=== PATIENT | female | born 1950 | race Hispanic/Latino ===

== ENCOUNTER → 2016-10-04 | Outpatient (CLI) | payer MEDICARE, OTHER | END | disposition home or self-care (01) | LOC: GMAB 10:56 | PROVIDERS: ATTEND Family Medicine | DX: I10 Essential (primary) hypertension (principal) ==

== ENCOUNTER → 2017-02-25 | Outpatient (CLI) | payer MEDICARE, OTHER ==
--- NOTE | 2017-02-25 12:35 | RAD ---
EXAM DESCRIPTION: Hip,Left 2 Views CLINICAL HISTORY: PAIN IN LEFT HIP COMPARISON: None FINDINGS: 2 views of the left hip. No acute fracture, dislocation or aggressive bone lesion is present. Bone mineralization appears normal. No erosions are present. No advanced osteoarthritis is present. Calcification is seen in the expected location of the abductor tendons. Symmetric bilateral mild sacroiliitis is seen likely degenerative. Severe facet arthritis of the lower lumbar spine. IMPRESSION: Negative for acute fracture or advanced osteoarthritis. Calcific tendinosis abductor tendons. Advanced facet arthritis of the lower lumbar spine can contribute to referred posterior hip pain. Electronically signed by: Coy Carias MD 02/25/2017 12:34 PM [facility]
== END | disposition home or self-care (01) ==
LOC: LAB.O 11:17
PROVIDERS: ATTEND Nurse Practitioner Family
DX: M47.896 Other spondylosis, lumbar region (principal); M25.552 Pain in left hip

== ENCOUNTER → 2017-03-20 | Outpatient (CLI) | payer MEDICARE, OTHER ==
--- NOTE | 2017-03-21 10:04 | RAD ---
EXAM DESCRIPTION: Knee,Right Complete CLINICAL HISTORY: 66 years, Female, PAIN COMPARISON: FINDINGS: Four views obtained without fracture or dislocation. Moderately advanced narrowing medially with spurring. Slight narrowing patellofemoral joint space was superior spurring. Chondrocalcinosis probably pseudogout. IMPRESSION: Moderate degenerative changes typically medially and patellofemoral joint space. Findings suggesting pseudogout. No fracture or dislocation. Electronically signed by: Chao Elizabeth MD 03/21/2017 10:[address] [facility]
--- NOTE | 2017-03-21 10:22 | RAD ---
EXAM DESCRIPTION: Pelvis CLINICAL HISTORY: 66 years, Female, PAIN COMPARISON: FINDINGS: Single frontal view the pelvis shows intact pelvic ring. Mild degenerative narrowing of both hips, slightly more in the right. Mild sacroiliac degenerative change, also more on the right. Mild degenerative changes lower lumbar spine. IMPRESSION: No fracture or dislocation. Mild degenerative changes noted. Electronically signed by: Chao Elizabeth MD 03/21/2017 10:21 AM [facility]
--- NOTE | 2017-03-21 10:23 | RAD ---
EXAM DESCRIPTION: Knee, left Complete CLINICAL HISTORY: 66 years, Female, PAIN COMPARISON: FINDINGS: No fracture or dislocation. Moderately advanced narrowing medially similar to the right side. Mild patellofemoral joint space narrowing. There may be faint chondrocalcinosis. IMPRESSION: No fracture or dislocation. Moderately advanced degenerative narrowing medially and patellofemoral joint space, fairly similar to the right side. Probable mild chondrocalcinosis Electronically signed by: Chao Elizabeth MD 03/21/2017 10:22 AM [facility]
== END ==
LOC: RAD 08:12
PROVIDERS: ATTEND Orthopaedic Surgery
DX: M25.562 Pain in left knee (principal); M25.552 Pain in left hip; M25.561 Pain in right knee; M25.551 Pain in right hip; M12.862 Other specific arthropathies, not elsewhere classified, left knee; M12.861 Other specific arthropathies, not elsewhere classified, right knee

== ENCOUNTER → 2017-04-11 | Outpatient (CLI) | payer MEDICARE, OTHER | END | disposition home or self-care (01) | LOC: RESP 10:21 | PROVIDERS: ATTEND Orthopaedic Surgery | DX: Z01.818 Encounter for other preprocedural examination (principal) ==

== ENCOUNTER 2017-04-30 05:46 | Inpatient (IN) | payer MEDICARE, OTHER ==
--- NOTE | 2017-04-29 11:30 | HP ---
CHIEF COMPLAINT: Left knee pain. HISTORY OF PRESENT ILLNESS: Ms. Barreto is a 66-year-old female with a history of pain in the left knee. She has attempted conservative measures, however, has failed to gain relief. The pain causes her enough difficulty on a daily basis that she wishes to pursue operative intervention. After discussing the risks, benefits and alternatives to that, the patient has given informed consent. PAST SURGICAL HISTORY: 1. Knee arthroscopy. MEDICATIONS: 1. Hydrocodone. 2. Gabapentin. 3. Valsartan. 4. Celecoxib. 5. Duloxetine. ALLERGIES: SULFA. CODE STATUS: Full code. IMMUNIZATIONS: Up to date. SOCIAL HISTORY: The patient does not drink, smoke or use any illicit drugs. FAMILY HISTORY: None pertinent to today's complaint. REVIEW OF SYSTEMS: Negative except as indicated in the History of Present Illness. PHYSICAL EXAMINATION: VITAL SIGNS: Blood pressure 158/90. Pulse 60. Height 5'1". Weight 164. MENTAL STATUS: The patient is awake, alert, and is able to give a good history and participate in the physical. The patient is oriented to person, place and time. SKIN: Normal tone and turgor. HEENT: Normocephalic, atraumatic. Pupils equal, round and reactive. Mucosal membranes are moist. NECK: Normal range of motion. No thyromegaly, no lymphadenopathy. CHEST: Normal respiratory excursion. CARDIAC: Regular rate and rhythm. No murmurs, rubs or gallops. MUSCULOSKELETAL: Bilateral upper extremities show full active range of motion. She has no significant pain with range of motion. Strength is 5/5. They are warm and well perfused. She has no crepitus or deformity. The right lower extremity shows full range of motion of the hip. She has full extension and 120 degrees of flexion in the knee. It is warm and well perfused. She is very tender to palpation diffusely, but most prominently the medial aspect. She has no varus/valgus or anterior/posterior laxity. The left side shows similar findings with crepitus and pain through range of motion. She has no varus/ valgus or anterior/posterior laxity. Sensation is intact. Strength is 5/5. IMAGING: X-rays show advanced arthritis. ASSESSMENT: 1. Arthritis of the knee. PLAN: The plan at this point is for total knee arthroplasty. We have discussed the risks, benefits, and alternatives to that and the patient has given informed consent. #[id number] [facility]
[~2017-04-30 05:46] MED LIST: LACTATED RINGERS 1,000 ML ONE; SODIUM CHL 0.9% 100ML MINI-BAG 100 ML IVPB ONE; SODIUM CHLORIDE 0.9% 100ML 100 ML IVPB ONE; SODIUM CHLORIDE 0.9% 250ML 250 ML ONE; TRANEXAMIC ACID 1,000 MG/10 ML VIAL ONE; VANCOMYCIN HCL INJ 1,000 MG VIAL IVPB ONE; ceFAZolin SODIUM 1 GM VIAL ONE
[2017-04-30] MEDS ORDERED: ceFAZolin SODIUM 1 GM VIAL ONE (06:16)
[2017-04-30] MEDS ORDERED: fentaNYL CITRATE INJ 50 MCG/ML AMP ONE (06:18)
[2017-04-30] MEDS ORDERED: MORPHINE SULFATE *EPIDURAL* 0.5 MG/ML VIAL ONE (06:18)
[2017-04-30] MEDS ORDERED: LACTATED RINGERS 1,000 ML ONE (06:19)
[2017-04-30] MEDS ORDERED: MIDAZOLAM INJ 2 MG/2 ML VIAL ONE (06:19)
[2017-04-30] MEDS ORDERED: LIDOCAINE 2 % GEL 5 ML TUBE TOP ONE (06:19)
[2017-04-30] MEDS: ceFAZolin SODIUM 1 GM VIAL ONE ×2 (07:47→08:50)
[2017-04-30] MEDS: BUPIVACAINE 0.25% W/EPI 50 ML VIAL INJ ONE ×2 (07:48→08:56)
[2017-04-30] MEDS: VANCOMYCIN HCL INJ 1,000 MG VIAL IVPB ONE ×2 (07:48→08:50)
[2017-04-30] MEDS ORDERED: DEX 5% W/NACL 0.45% 1000ML 1,000 ML IVS PRN (09:06)
[2017-04-30] MEDS ORDERED: ALUMINUM & MAGNESIUM HYDROXIDE 30 ML UD PO PRN (09:06)
[2017-04-30] MEDS ORDERED: SODIUM CHLORIDE 0.9% (FLUSH) 10 ML SYG IV PRN (09:06)
[2017-04-30] MEDS ORDERED: PROMETHAZINE HCL INJ 25 MG in SODIUM CHLORIDE 0.9% 50ML 50 ML IVPB PRN (09:06)
[2017-04-30] MEDS ORDERED: ACETAMINOPHEN 500 MG TAB PO PRN (09:06)
[2017-04-30] MEDS ORDERED: TRANEXAMIC ACID INJ 1,000 MG in SODIUM CHLORIDE 0.9% 100ML 100 ML IVPB ONE (09:06)
[2017-04-30] MEDS ORDERED: PROMETHAZINE HCL INJ 12.5 MG in SODIUM CHLORIDE 0.9% 50ML 50 ML IVPB PRN (09:06)
[2017-04-30] MEDS ORDERED: MORPHINE SULFATE INJ 10 MG/ML VIAL IM PRN (09:06)
[2017-04-30] MEDS ORDERED: MAGNESIUM HYDROXIDE 30 ML UD PO PRN (09:06)
[2017-04-30] MEDS ORDERED: ONDANSETRON INJ 4 MG/2 ML VIAL IV PRN (09:06)
[2017-04-30] MEDS ORDERED: MORPHINE SULFATE INJ 10 MG/ML VIAL IV PRN (09:06)
[2017-04-30] MEDS ORDERED: BENZOCAINE-MENTH LOZ (CEPACOL) 1 EA LOZ MT PRN (09:06)
[2017-04-30] MEDS ORDERED: BISACODYL SUPPOSITORY 10 MG PR PRN (09:06)
[2017-04-30] MEDS ORDERED: ZOLPIDEM TARTRATE 5 MG TAB PO PRN (09:06)
[2017-04-30] MEDS ORDERED: NALOXONE HCL INJ 0.4 MG/ML VIAL IV PRN (09:06)
[2017-04-30] MEDS ORDERED: ACETAMINOPHEN 325 MG TAB PO PRN (09:06)
[2017-04-30] MEDS ORDERED: TEMAZEPAM 15 MG CAP PO PRN (09:06)
[2017-04-30] MEDS ORDERED: MORPHINE PCA 1 MG/ML 100 ML BAG IVPB ONE (09:07)
[2017-04-30] MEDS ORDERED: MORPHINE PCA 1 MG/ML 100ML 1 BAG in PREMIX BAG 1 BAG IVPB SCH (09:30)
[2017-04-30] MEDS ORDERED: METOCLOPRAMIDE HCL INJ 10 MG/2 ML VIAL ONE (10:27)
[2017-04-30] MEDS ORDERED: METOCLOPRAMIDE HCL INJ 10 MG/2 ML VIAL IV ONE ×2 (10:30→12:00)
[2017-04-30] MEDS ORDERED: ONDANSETRON INJ 4 MG/2 ML VIAL IV ONE (10:30)
[2017-04-30] MEDS ORDERED: PROPOFOL 200 MG/20 ML VIAL IV ONE (12:00)
[2017-04-30] MEDS ORDERED: DEXAMETHASONE INJ 10 MG/ML VIAL IV ONE (12:00)
[2017-04-30] MEDS: IV SET AND CAP CHANGE INJ INJ SCH (14:00)
[2017-04-30] MEDS ORDERED: DEXTROSE 50% 25 GM/50 ML SYG IV PRN (14:12)
[2017-04-30] MEDS ORDERED: GLUCAGON INJ 1 MG VIAL SUBCU PRN (14:12)
--- NOTE | 2017-04-30 14:17 | PCM.CORE ---
Physician DVT/VTE - Nurse DVT Assessment & Total Each Risk Factor Represents 2 Points: Age 60-74, Major Surgery >45 minutes DVT Assessment Score: 4 - 3-4 High Risk Treatments: Early Ambulation *, Sequential Compression Device - 5 or more Very High Risk Treatments: Early Ambulation *, Sequential Compression Device Pharmacological: Enoxaparin 30mg SQ BID
[2017-04-30] MEDS ORDERED: SODIUM CHLORIDE 0.9% 1000ML 1,000 ML ONE (16:14)
[2017-04-30] MEDS ORDERED: ceFAZolin SODIUM 2 GRAMS PREMI 50 ML IVPB ONE ×2 (16:15→20:34)
[2017-04-30] MEDS: SODIUM CHLORIDE 0.9% 1000ML 1,000 ML IVS PRN (16:22)
[2017-04-30] MEDS: ceFAZolin SODIUM 2 GRAMS PREMI 2 GM in PREMIX BAG 1 BAG IVPB SCH (16:23)
[2017-04-30] MEDS: GABAPENTIN 300 MG CAP PO SCH ×2 (16:23→20:38)
[2017-04-30] MEDS: INSULIN LISPRO 100 UNITS/ML PEN SUBCU SCH ×2 (16:36→21:04)
[2017-04-30] MEDS ORDERED: INSULIN LISPRO 100 UNITS/ML PEN SUBCU SCH (18:00)
[2017-04-30] MEDS ORDERED: SODIUM CHLORIDE 0.9% 250ML 250 ML ONE ×2 (18:06→20:32)
[2017-04-30] MEDS ORDERED: VANCOMYCIN HCL INJ 1,000 MG VIAL IVPB ONE ×2 (18:07→20:34)
[2017-04-30] MEDS: VANCOMYCIN HCL INJ 1,000 MG in SODIUM CHLORIDE 0.9% 250ML 250 ML IVPB SCH (18:09)
[2017-04-30] MEDS: DULoxetine HCL 30 MG CAP PO SCH (20:37)
[2017-04-30] MEDS: VALSARTAN 80 MG TAB PO SCH (20:37)
[2017-04-30] MEDS: CYCLOBENZAPRINE HCL 10 MG TAB PO PRN (20:37)
[2017-04-30] MEDS: DOCUSATE CALCIUM 240 MG CAP PO SCH (20:38)
--- NOTE | 2017-04-30 21:23 | CONS ---
DATE OF CONSULTATION: 04/30/17 SUPERVISING PHYSICIAN: El Marsh M.D. REASON FOR CONSULTATION: Total left knee arthroplasty. HISTORY OF PRESENT ILLNESS: Ms. Barreto is a 66 year-old female patient that has a longstanding history of osteoarthritis of the left knee. She has tried multiple attempts at conservative measure treatments as an outpatient but has failed to get any significant relief. The pain has worsened to the point where she is unable to fully function daily in her average daily activities, thus she requested elective operative intervention. She was scheduled today for elective left knee total arthroplasty and had no complications intraoperative or postoperative, and was followed in the immediate postoperative period. She was seen in stable condition. PAST MEDICAL HISTORY: 1. Hypertension. 2. Chronic low back pain. 3. Type 2 diabetes on diet only. 4. Headaches. 5. Seasonal allergies. PAST SURGICAL HISTORY: 1. section. 2. Hysterectomy. 3. Anterior cervical fusion. 4. Laparoscopic surgery of the shoulder. 5. Knee arthroscopy. HOME MEDICATIONS: 1. Gabapentin 600 mg t.i.d. 2. Cymbalta 60 mg at bedtime. 3. Celebrex 200 mg at bedtime. 4. Diovan 320 mg at bedtime. 5. Lorcet 10/325 one tablet every 6 hours as needed. ALLERGIES: SULFA ANTIBIOTICS. FAMILY HISTORY: Father from myocardial infarction. Mother had cancer. SOCIAL HISTORY: The patient currently works at [employer]. She is . Lives in [place]. She has never drank nor has she ever smoked tobacco. REVIEW OF SYSTEMS: Negative except as noted in History of Present Illness. PHYSICAL EXAMINATION: VITAL SIGNS: Temperature 97.4, pulse 68, blood pressure 129/82, respirations 16 , satting 94% on room air. Admission weight is 74.3 kg. GENERAL: The patient is currently resting, utilizing her CPM. She appears comfortable in no acute distress. Reports she has good pain control She is alert. HEENT: Tympanic membranes are clear bilaterally. Oropharynx is pink and moist without any lesions. NECK: Supple, non-tender with full range of motion. No jugular venous distention. CHEST: Clear to auscultation bilaterally without any rhonchi, wheezing or rales. HEART: Regular rate and rhythm without appreciable murmurs, gallops, or rubs. ABDOMEN: Soft, non-tender with positive bowel sounds. EXTREMITIES: Left knee has a bulky surgical dressing in place. Pulses distally are strong. Capillary refill is brisk. NEUROLOGIC: She is alert and oriented times three. LABORATORY: H&H postoperative is pending. Blood sugar is 125. RADIOLOGY: No additional radiographic studies are available. ASSESSMENT: 1. Postoperative day zero for elective left total knee arthroplasty secondary to chronic pain failing to respond to outpatient treatment therapy with surgery being performed by Dr. Evaristo Osman. 2. Hypertension. 3. Type 2 diabetes on diet only. 4. Seasonal allergies. 5. Chronic lower back pain. 6. History of headaches. PLAN: The patient will be followed as she proceeds through her physical therapy efforts. Will defer orthopedic care and plan to Dr. Osman. Will continue to monitor her blood pressure and blood sugars. She will be on sliding scale as per protocol. She will be on DVT prophylaxis as per protocol for orthopedic surgery. Will anticipate length of stay to be 2 to 3 days. Discharge planning is in place. She is unsure as to what she is going to do for physical therapy at discharge. Until discharge, will continue to monitor and treat appropriately. #[id number] [facility]
[2017-04-30] MEDS: ENOXAPARIN SODIUM 30 MG/0.3 ML SYG SUBCU SCH (22:04)
[2017-05-01] MEDS: ceFAZolin SODIUM 2 GRAMS PREMI 2 GM in PREMIX BAG 1 BAG IVPB SCH ×2 (00:18→08:51)
[2017-05-01] MEDS: VANCOMYCIN HCL INJ 1,000 MG in SODIUM CHLORIDE 0.9% 250ML 250 ML IVPB SCH (06:18)
[2017-05-01] MEDS ORDERED: ceFAZolin SODIUM 2 GRAMS PREMI 50 ML IVPB ONE (07:12)
[2017-05-01] MEDS: INSULIN LISPRO 100 UNITS/ML PEN SUBCU SCH ×4 (07:31→21:00)
--- NOTE | 2017-05-01 09:12 | RAD ---
KNEE X-RAY TWO-VIEW INDICATION: Arthroplasty COMPARISON: Knee x-ray 03/20/2017 TECHNIQUE: AP and lateral radiographs of the knee labeled left were obtained intraoperatively. FINDINGS/IMPRESSION: Status post left knee arthroplasty in anatomic alignment. No immediate hardware complication. Expected post surgical changes. Electronically signed by: Nean Andersen MD 05/01/2017 9:11 AM [employer] Workstation: [id number]
[2017-05-01] MEDS: GABAPENTIN 300 MG CAP PO SCH ×3 (09:27→20:50)
[2017-05-01] MEDS: ENOXAPARIN SODIUM 30 MG/0.3 ML SYG SUBCU SCH ×2 (09:27→22:26)
[2017-05-01] MEDS: MAGNESIUM OXIDE 400 MG TAB PO SCH (09:28)
--- NOTE | 2017-05-01 11:17 | PN ---
DATE: 05/01/17 SUBJECTIVE: She is doing well and says she is not having any pain at this time. OBJECTIVE: Afebrile. Vital signs stable. Dressing is clean, dry and intact. ASSESSMENT: Status post total knee arthroplasty. PLAN: The plan at this point is to begin weight-bearing as tolerated. [facility][id number] [facility]
--- NOTE | 2017-05-01 11:18 | PN ---
DATE: 04/30/17 POSTOPERATIVE SUBJECTIVE: She is doing well and has excellent pain control. OBJECTIVE: Afebrile. Vital signs stable. Dressing is clean, dry and intact. ASSESSMENT: Status post. PLAN: The plan at this point is to begin weight-bearing as tolerated on postoperative day 1. [facility][id number] [facility]
--- NOTE | 2017-05-01 11:42 | OP ---
DATE OF PROCEDURE: 04/30/17 PREOPERATIVE DIAGNOSIS: 1. Osteoarthritis of the knee. POSTOPERATIVE DIAGNOSIS: 1. Osteoarthritis of the knee. PROCEDURE: 1. Total knee arthroplasty. SURGEON: Evaristo Osman MD. TOPPER PACKER: Tawanda Mcdonald CST, SA-C. ANESTHESIA: General. COMPLICATIONS: None. FINDINGS: Advanced arthritis of the knee. INDICATION: Ms. Barreto has a history of knee pain that has been refractory to conservative measures. Because of the ongoing pain, she has requested operative intervention. After discussing the risks, benefits and alternatives to operative intervention, the patient has given informed consent for total knee arthroplasty. PROCEDURE: The patient was brought to the Operating Room and placed in supine position. General anesthesia was induced and the patient's leg was sterilely prepped and draped. Following prepping and draping, the distal femur was exposed and using an intramedullary guide, the distal femoral cut was made. The appropriate sized cutting block was measured, pinned into place, and the anterior, posterior, and chamfer cuts were made. The ACL was transected and the tibia was subluxed. Both the medial and lateral menisci were removed. An intramedullary guide was used to make the proximal tibial cut. The appropriate sized base plate was placed and a trial polyethylene was placed. The trial femur was placed, the knee was reduced, and the knee was taken through a range of motion. The knee was stable in anterior, posterior, varus and valgus stress. The patella tracked anatomically without evidence of subluxation or dislocation. After trialing, the trial components were removed and the bony surfaces were thoroughly irrigated with saline. Following irrigation, the surfaces were dried and the final components were cemented into place. The excess cement was removed and the remaining cement was allowed to cure. The knee was again taken through a range of motion to confirm stability. The wound was then irrigated with saline and closure was performed using PDS to approximate the arthrotomy followed by closure of the subcutaneous tissues with a combination of running and interrupted Monocryl sutures. Sterile dressing was placed. The patient was awoken from anesthesia and taken to Recovery. POSTOPERATIVE INSTRUCTIONS: The patient will be weight-bearing as tolerated on postoperative day 1. COMPONENTS: [employer] ([employer]) Triathlon knee, size 5 femur, size 4 tibia, 9 mm insert. #[id number] [facility]
[2017-05-01] MEDS: SODIUM CHLORIDE 0.9% 1000ML 1,000 ML IVS PRN (16:47)
--- NOTE | 2017-05-01 19:37 | PN ---
DATE: 05/01/17 SUPERVISING PHYSICIAN: El Marsh M.D. SUBJECTIVE: The patient is lying in bed asleep. She awakens easily. She denies chest pain, nausea, vomiting, diarrhea or constipation. She admits that her knee does hurt but nothing more than she expects. OBJECTIVE: VITAL SIGNS: T max 24 hours is 99.1, pulse rate 62, blood pressure 108/71, respiratory rate 16, O2 sat is 90% on room air. GENERAL: This is a 66 year-old female patient lying on her hospital bed. She is in no acute distress. RESPIRATORY: Essentially clear to auscultation bilaterally. CARDIAC : Regular rate and rhythm. EXTREMITIES: Her right knee has a dressing with Giancarlo bandage on it that is dry and intact. Her bilateral pedal pulses are palpable at +2. NEUROLOGIC: She is awake, alert and oriented times three. LABORATORY: Hemoglobin is 10.6, hematocrit 31.9. Blood sugars have run between 93 and 164. All other labs and films have been reviewed via the EMR. ASSESSMENT: 1. Postoperative day #1 for elective left total knee arthroplasty secondary to chronic pain failing to respond to outpatient treatment therapy with surgery being performed by Dr. Evaristo Osman, orthopedic surgeon. 2. Hypertension. 3. Type 2 diabetes on diet only. 4. Seasonal allergies. 5. Chronic lower back pain. 6. History of migraines. PLAN: We will continue present supportive care. Orthopedic issues will be per Dr. Evaristo Osman, orthopedic surgeon. She will continue her strengthening and conditioning with Physical Therapy. Discharge plan is that she will do outpatient physical therapy at the [facility]. I have encouraged good pulmonary hygiene and frequent use of her IS. Otherwise we will continue to monitor the patient closely and follow as needed. Dr. Marsh is the collaborating physician available for consultation. #[id number] [facility]
[2017-05-01] MEDS: traMADol HCL 50 MG TAB PO PRN (19:55)
[2017-05-01] MEDS: DOCUSATE CALCIUM 240 MG CAP PO SCH (20:50)
[2017-05-01] MEDS: DULoxetine HCL 30 MG CAP PO SCH (20:50)
[2017-05-01] MEDS: VALSARTAN 80 MG TAB PO SCH (20:50)
[2017-05-02] MEDS: INSULIN LISPRO 100 UNITS/ML PEN SUBCU SCH ×4 (07:20→20:57)
[2017-05-02] MEDS: MAGNESIUM OXIDE 400 MG TAB PO SCH (09:13)
[2017-05-02] MEDS: GABAPENTIN 300 MG CAP PO SCH ×3 (09:13→20:50)
[2017-05-02] MEDS: CYCLOBENZAPRINE HCL 10 MG TAB PO PRN ×2 (09:14→17:48)
[2017-05-02] MEDS: SODIUM CHLORIDE 0.9% (FLUSH) 10 ML SYG IV SCH ×2 (09:14→21:05)
[2017-05-02] MEDS: traMADol HCL 50 MG TAB PO PRN ×2 (09:14→17:47)
[2017-05-02] MEDS: ENOXAPARIN SODIUM 30 MG/0.3 ML SYG SUBCU SCH ×2 (09:14→22:05)
--- NOTE | 2017-05-02 18:08 | PN ---
DATE: 05/02/17 SUPERVISING PHYSICIAN: El Marsh M.D. SUBJECTIVE: The patient is sitting up in her bed in her room. She has no complaints of shortness of breath, nausea, vomiting, diarrhea or chest pain. She feels like she went through her physical therapy today well and has no complaints. OBJECTIVE: VITAL SIGNS: She is afebrile, heart rate 77, blood pressure 157/79, respiratory rate 18, O2 sat 93% on room air. RESPIRATORY: Essentially clear to auscultation bilaterally. CARDIAC: Regular rate and rhythm. EXTREMITIES: Incision to left knee is without signs or symptoms of complications or infection with minimal swelling. Bilateral pedal pulses are palpable at +2. NEUROLOGIC: She is awake, alert and oriented times three. LABORATORY: There are no labs or films to report today. ASSESSMENT: 1. Postoperative day #2 for elective left total knee arthroplasty secondary to chronic pain failing to respond to outpatient treatment therapy with surgery being performed by Dr. Evaristo Osman, orthopedic surgeon. 2. Hypertension. 3. Type 2 diabetes, diet controlled only. 4. Seasonal allergies. 5. Chronic lower back pain. 6. History of migraines. PLAN: We will continue present supportive care. Her orthopedic issues will be per Dr. Evaristo Osman, orthopedic surgeon. She will continue her strengthening and conditioning per Physical Therapy. I have continued to encourage good pulmonary hygiene. Plan for discharge will be tomorrow or Saturday. She will [facility]. We will continue to monitor the patient closely and follow as needed. Dr. Marsh is the collaborating physician available for consultation. #[id number] [facility]
[2017-05-02] MEDS: VALSARTAN 80 MG TAB PO SCH (20:50)
[2017-05-02] MEDS: DOCUSATE CALCIUM 240 MG CAP PO SCH (20:51)
[2017-05-02] MEDS: DULoxetine HCL 30 MG CAP PO SCH (20:51)
[2017-05-03] MEDS: traMADol HCL 50 MG TAB PO PRN ×2 (03:32→20:19)
[2017-05-03] MEDS: HYDROcodone 5MG/APAP 325MG 1 EA TAB PO PRN ×2 (06:41→14:36)
[2017-05-03] MEDS: INSULIN LISPRO 100 UNITS/ML PEN SUBCU SCH ×4 (07:28→23:46)
[2017-05-03] MEDS: MAGNESIUM OXIDE 400 MG TAB PO SCH (08:06)
[2017-05-03] MEDS: SODIUM CHLORIDE 0.9% (FLUSH) 10 ML SYG IV SCH ×2 (08:06→20:20)
[2017-05-03] MEDS: GABAPENTIN 300 MG CAP PO SCH ×3 (08:06→20:20)
[2017-05-03] MEDS: IV SET AND CAP CHANGE INJ INJ SCH (09:11)
[2017-05-03] MEDS: ENOXAPARIN SODIUM 30 MG/0.3 ML SYG SUBCU SCH ×2 (09:12→22:30)
--- NOTE | 2017-05-03 09:21 | PN ---
DATE: 05/02/17 SUBJECTIVE: Mr. Barreto is doing really well and she has great pain control right now. She has bee up and ambulating on her walker with assistance. OBJECTIVE: Afebrile. Vital signs stable. Wound is clean, dry and without signs or symptoms of infection. ASSESSMENT: Status post total knee arthroplasty. PLAN: The plan at this point is for her to continue with weight-bearing as tolerated. We will discharge her when all physical therapy goals are met. #[id number] [facility]
--- NOTE | 2017-05-03 09:25 | PN ---
DATE: 05/03/17 SUBJECTIVE: Ms. Barreto is doing well and she walked quite a ways yesterday. OBJECTIVE: Afebrile. Vital signs stable. Wound is clean. There are no signs or symptoms of infection. ASSESSMENT: Status post total knee arthroplasty. PLAN: At this point, we are going to have her continue weight-bearing as tolerated and increase her CPM as tolerated. [id number] [facility]
--- NOTE | 2017-05-03 15:14 | PN ---
DATE: 05/03/17 SUBJECTIVE: The patient is lying in the bed. She is actively participating with her physical therapy personnel. She is in no significant pain. No shortness of breath. No nausea and vomiting. She has not had a bowel movement in recent days but does not wish to have anything for it at this time. Physical Therapy states that she has shown some steady improvement now being the third postoperative day. OBJECTIVE: Afebrile, pulse 85, blood pressure 110/69, pulse oximetry 92% on room air. The patient is awake and alert and cooperative. Heart and lungs normal. Abdomen is soft, slightly obese. There is no drainage into the dressings of the left knee. Fairly good range of motion is noted. The patient is cooperative with her ongoing rehabilitation. ASSESSMENT: 1. Postoperative day #3 total left knee arthroplasty having failed outpatient therapy and requiring surgical intervention to assist with symptom control with surgery performed by Dr. Evaristo Osman, orthopedic surgeon. 2. Chronic osteoarthritis failing to respond to outpatient therapy and requiring surgical intervention. 3. History of hypertension. 4. History of diabetes mellitus type 2 with diet control. 5. History of seasonal allergies. 6. Chronic low back pain. 7. History of migraines. PLAN: The patient will continue with rehabilitation. Reevaluate tomorrow by Physical Therapy, then a decision will be made for possible continued outpatient therapy tomorrow with [facility] with ongoing PT rehabilitation under orthopedic supervision. Encouraged to breathe deeply and actively contract and relax muscles of the lower extremities to assist with ongoing DVT prophylaxis. #[id number] [facility]
[2017-05-03] MEDS: VALSARTAN 80 MG TAB PO SCH (20:19)
[2017-05-03] MEDS: DULoxetine HCL 30 MG CAP PO SCH (20:19)
[2017-05-03] MEDS: DOCUSATE CALCIUM 240 MG CAP PO SCH (20:20)
[2017-05-03] MEDS ORDERED: BISACODYL SUPPOSITORY 10 MG PR ONE (21:00)
[2017-05-03] MEDS ORDERED: MAGNESIUM HYDROXIDE 30 ML UD PO ONE (21:00)
[2017-05-04] MEDS: HYDROcodone 5MG/APAP 325MG 1 EA TAB PO PRN (03:08)
[2017-05-04] MEDS: CYCLOBENZAPRINE HCL 10 MG TAB PO PRN (03:09)
[2017-05-04] MEDS: INSULIN LISPRO 100 UNITS/ML PEN SUBCU SCH (07:07)
[2017-05-04] MEDS: SODIUM CHLORIDE 0.9% (FLUSH) 10 ML SYG IV SCH (08:01)
[2017-05-04] MEDS: MAGNESIUM OXIDE 400 MG TAB PO SCH (08:01)
[2017-05-04] MEDS: GABAPENTIN 300 MG CAP PO SCH (08:01)
[2017-05-04] MEDS: ENOXAPARIN SODIUM 30 MG/0.3 ML SYG SUBCU SCH (09:02)
[2017-05-04 09:55] VITALS: BP 120/78; TEMP 97.8; O2SAT 98
--- NOTE | 2017-05-04 12:24 | DS ---
DISCHARGE DIAGNOSIS: 1. Postoperative day #4 total left knee arthroplasty having failed outpatient therapy and requiring surgical intervention to assist with symptom control with surgery performed by Dr. Evaristo Osman, orthopedic surgeon. 2. Chronic osteoarthritis failing outpatient therapy and requiring surgical intervention. 3. History of hypertension. 4. History of diabetes mellitus type 2 on diet control. 5. History of seasonal allergies. 6. Chronic low back pain. 7. History of migraines. HISTORY OF PRESENT ILLNESS: This 66 year-old female was admitted to the hospital on 04/30/17 for elective surgical replacement of her left knee. She had been having significant pain for a number of years and had failed to respond to various and multiple outpatient treatment procedures and options. She was taken to surgery and successfully went through surgery by Dr. Osman to replace the left knee for symptom control. In the immediate postoperative period, she was managed closely by the hospitalist service as well as continued rehabilitation by Physical Therapy under orthopedic surgical supervision. LABORATORY: The only laboratory provided was a hemoglobin postoperatively of 10.6 and chemistries showed blood sugar ranging from 93 up to 132, and was 98 at the time of her discharge. No cultures obtained. RADIOLOGY: X-ray was performed postoperatively and showed satisfactory placement of the prosthesis in the left knee. HOSPITAL COURSE: The patient was feeling much improved and had successfully achieved her physical therapy goal of rehabilitation to be able to safely return home and continue with outpatient management as of the day of discharge. She was ready for continued outpatient therapy and management at the time of the day of discharge. PLAN: The patient will be scheduled to see Dr. Osman at the scheduled appointment and to continue with physical therapy rehabilitation as of [facility] [place]. She is to stay active and breathe deeply to help with DVT prophylaxis. Continue with Xarelto for at least 8 more days with prescription called in to her pharmacy. She is to return if not improving. See home medication list. [facility][id number] [facility]
== END 2017-05-04 11:00 | disposition home or self-care (01) | DRG 470 ==
LOC: AMB 05:46 → MS 11:00
PROVIDERS: ADMIT Orthopaedic Surgery; ATTEND Emergency Medicine
PROC: 0SRD0J9 Replacement of Left Knee Joint with Synthetic Substitute, Cemented, Open Approach (ICD-10-PCS; principal; 2017-04-30 07:09)
DX: M17.12 Unilateral primary osteoarthritis, left knee (principal); I10 Essential (primary) hypertension; E11.9 Type 2 diabetes mellitus without complications; G89.29 Other chronic pain; M54.5 Low back pain; Z88.2 Allergy status to sulfonamides

== ENCOUNTER → 2018-02-17 | Outpatient (CLI) | payer MEDICARE, OTHER | LOC: GMAE 11:16 | PROVIDERS: ATTEND Family Medicine | DX: I10 Essential (primary) hypertension (principal) ==

== ENCOUNTER → 2018-06-17 | Outpatient (CLI) | payer MEDICARE, OTHER | LOC: GMAE 14:18 | PROVIDERS: ATTEND Family Medicine | DX: D51.3 Other dietary vitamin B12 deficiency anemia (principal); E83.42 Hypomagnesemia ==

== ENCOUNTER → 2019-04-14 | Outpatient (CLI) | payer MEDICARE, OTHER | LOC: GMAE 10:28 | PROVIDERS: ATTEND Family Medicine | DX: D51.8 Other vitamin B12 deficiency anemias (principal); I10 Essential (primary) hypertension; E78.2 Mixed hyperlipidemia ==

== ENCOUNTER 2019-05-19 10:41 | Emergency (ER) | payer MEDICARE, OTHER ==
[2019-05-19 11:04] VITALS: TEMP 97
[2019-05-19] MEDS ORDERED: cloNIDine HCL 0.1 MG TAB PO ONE (11:18)
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
[2019-05-19 15:03] VITALS: BP 121/73; O2SAT 96
== END 2019-05-19 14:59 | disposition home or self-care (01) ==
LOC: ER 10:41
DX: S00.03XA Contusion of scalp, initial encounter (principal); M25.511 Pain in right shoulder; M25.512 Pain in left shoulder; M54.2 Cervicalgia; I10 Essential (primary) hypertension; Z98.84 Bariatric surgery status; W01.198A Fall on same level from slipping, tripping and stumbling with subsequent striking against other object, initial encounter; Y92.480 Sidewalk as the place of occurrence of the external cause

== ENCOUNTER → 2019-11-02 | Outpatient (CLI) | payer MEDICARE, OTHER ==
--- NOTE | 2019-11-02 10:33 | RAD ---
EXAM DESCRIPTION: Knee,Left Complete CLINICAL HISTORY: 69 years Female, PAIN IN LEFT KNEE COMPARISON: None. Findings: Four view(s)/radiograph(s) Left total knee arthroplasty. Minimal perihardware lucency posteriorly surrounding the tibial stem component. No acute fracture or dislocation. No significant joint effusion. IMPRESSION: Left total knee arthroplasty with minimal perihardware lucency posteriorly along the tibial stem component which can be seen with loosening. Electronically signed by: Cong Grant MD 11/02/2019 10:32 AM CDT
--- NOTE | 2019-11-02 10:36 | RAD ---
EXAM DESCRIPTION: Pelvis CLINICAL HISTORY: PAIN IN LEFT HIP COMPARISON: December 19, 2016 IMPRESSION: Single AP supine view of the pelvis shows mild diffuse osteopenia the osseous structures without acute rupture, focal bone destruction, or joint dislocation. Mild joint space narrowing is seen in both hips with sclerotic changes to the superior acetabula compatible with mild osteoarthritic changes. Degenerative changes of the sacroiliac joints are seen left greater than right. Electronically signed by: Brando Kerr MD 11/02/2019 10:34 AM CDT
== END ==
LOC: RAD 08:05
PROVIDERS: ATTEND Orthopaedic Surgery
DX: M85.88 Other specified disorders of bone density and structure, other site (principal); M25.851 Other specified joint disorders, right hip; M25.852 Other specified joint disorders, left hip; M47.898 Other spondylosis, sacral and sacrococcygeal region; Z96.652 Presence of left artificial knee joint; R93.7 Abnormal findings on diagnostic imaging of other parts of musculoskeletal system

== ENCOUNTER 2020-01-11 05:12 | Day surgery (SDC) | payer MEDICARE, OTHER ==
[2020-01-11] MEDS ORDERED: MIDAZOLAM INJ 2 MG/2 ML VIAL ONE (07:10)
[2020-01-11] MEDS ORDERED: PROPARACAINE 0.5% OPHTH SOL 15 ML BTTL LEFT_EYE ONE (07:59)
[2020-01-11] MEDS ORDERED: DEXAMETHASONE 0.1% OPHTH SOL 1 DROP LEFT_EYE ONE ×2 (08:08→08:27)
[2020-01-11] MEDS ORDERED: MOXIFLOXACIN HCL (OPHTH) 1 DROP DROPS LEFT_EYE ONE ×2 (08:08→08:26)
[2020-01-11] MEDS ORDERED: LIDOCAINE 1% MPF 2 ML VIAL INJ ONE ×2 (08:08→08:13)
[2020-01-11] MEDS ORDERED: TOBRAMYCIN SULF 0.3 % OPHT SOL 1 DROP LEFT_EYE ONE ×2 (08:09→08:27)
[2020-01-11] MEDS ORDERED: BRIMONIDINE 0.2% OPHTH DROPS LEFT_EYE ONE ×2 (08:09→08:27)
== END 2020-01-11 09:02 | disposition home or self-care (01) ==
LOC: AMB 05:12
PROVIDERS: ATTEND Ophthalmology
DX: E11.36 Type 2 diabetes mellitus with diabetic cataract (principal); H25.12 Age-related nuclear cataract, left eye; I10 Essential (primary) hypertension; Z79.899 Other long term (current) drug therapy
CPT/HCPCS: 00142; 66984; J2250

== ENCOUNTER 2020-01-25 05:14 | Day surgery (SDC) | payer MEDICARE, OTHER ==
[2020-01-25] MEDS ORDERED: TROP1%/CYCLOPEN 1%/PHENYL 2.5% DROPS OPHTH ONE (05:15)
[2020-01-25] MEDS ORDERED: MIDAZOLAM INJ 2 MG/2 ML VIAL ONE (06:55)
[2020-01-25] MEDS ORDERED: PROPARACAINE 0.5% OPHTH SOL 15 ML BTTL RIGHT_EYE ONE (07:28)
[2020-01-25] MEDS ORDERED: LIDOCAINE 1% MPF 2 ML VIAL INJ ONE (07:37)
[2020-01-25] MEDS ORDERED: MOXIFLOXACIN HCL (OPHTH) 1 DROP DROPS RIGHT_EYE ONE ×2 (07:37→07:53)
[2020-01-25] MEDS ORDERED: DEXAMETHASONE 0.1% OPHTH SOL 1 DROP RIGHT_EYE ONE ×2 (07:38→07:53)
[2020-01-25] MEDS ORDERED: TOBRAMYCIN SULF 0.3 % OPHT SOL 1 DROP RIGHT_EYE ONE ×2 (07:38→07:53)
[2020-01-25] MEDS ORDERED: BRIMONIDINE 0.2% OPHTH DROPS RIGHT_EYE ONE ×2 (07:38→07:53)
== END 2020-01-25 08:29 | disposition home or self-care (01) ==
LOC: AMB 05:14
PROVIDERS: ATTEND Ophthalmology
DX: E11.36 Type 2 diabetes mellitus with diabetic cataract (principal); H25.11 Age-related nuclear cataract, right eye; I10 Essential (primary) hypertension; Z79.899 Other long term (current) drug therapy
CPT/HCPCS: 00142; 66984; J2250

== ENCOUNTER → 2020-02-16 | Outpatient (CLI) | payer MEDICARE, OTHER ==
--- NOTE | 2020-02-17 10:41 | MRI ---
EXAM DESCRIPTION: Lumbar Spine w/o Contrast : Magnetic Resonance Imaging. CLINICAL HISTORY: lumbar radiculopathy COMPARISON: Noncontrast MRI scan lumbar spine October 2015. TECHNIQUE: Multiplanar, multiple standard sequences, non contrast MRI, lumbar spine.. Technically difficult study due to patient motion most sequences. FINDINGS: L5-S1: The disc is well visualized on axial T2 series 501, image 3. Disc desiccation and disc space loss. Anterior and posterior bulging. 4 mm grade 1 anterolisthesis. Posterior disc bulge. Moderate hypertrophic changes in the facet joints and posterior flavum ligaments (canal elements). AP canal diameter 8 mm. Left foraminal stenosis and moderate to severe right foraminal narrowing. Deformity and spondylolysis left L5 pars interarticularis stable. Transitional S1 segment is lumbarized with rudimentary S1-S2 disc stable from the prior study. L4-L5: Disc desiccation and posterior disc space loss. Posterior disc bulge. Grade 1 anterolisthesis 3 mm. In greatest hypertrophic changes in the canal elements, especially the ligaments. AP canal diameter 4 mm. This has progressed since the prior study. Left foraminal stenosis and moderate right foraminal narrowing stable since the prior study. Abnormal signal in the left L4 pars representing spondylolysis. L3-L4: Disc desiccation with disc space maintained. No significant bulging. Mild hypertrophic changes in the canal elements. AP canal diameter 11 mm. Bilateral mild to moderate foraminal narrowing. No interval change. L2-L3: Disc desiccation and anterior and posterior broad-based bulging. Hypertrophic changes in the canal elements. AP canal diameter 9 mm. Disc bulging also in the bilateral foramina. Borderline left foraminal stenosis which is progressed since the prior study and moderate right foraminal narrowing. L1-L2: Disc desiccation and posterior disc space loss and broad-based bulge. This has progressed since the prior study. Minimal anterior bulging and endplate spurs. Hypertrophic changes in the canal elements. Canal is patent. Mild bilateral foraminal narrowing. Conus terminates at this level. T12-L1: Disc desiccation and anterior bulging and endplate spurs. Midline and right side moderate endplate reactive changes. Associated marrow edema. Disc spur complex encroaching on the right foramen with stenosis and probable compromise right T12 nerve. Significantly worsened since the prior study. Hypertrophic changes in the canal elements with minimal canal narrowing of the right of midline. T11 L2 levoscoliosis. Paravertebral soft tissues show muscle atrophy, right cortical cyst.. Distal cord normal signal and caliber. Otherwise normal marrow signal in the remaining vertebral bodies and the posterior elements. Vertebral bodies are not compressed at any level. IMPRESSION: 1. Multiple levels of disc desiccation and bulging, disc space loss, and hypertrophic changes in the posterior flavum ligaments and facet joints, spondylosis and spondylolisthesis, and canal and foraminal narrowing. 2. Spondylosis on the right at T12-L1 has significantly worsened since the prior study resulting in levoscoliosis, right foraminal stenosis, and likely compromise of the right T12 nerve. 3. Borderline left foraminal stenosis at L2-L3 has progressed since the prior study. Possible compromise left L2 nerve. 4. Please refer to FINDINGS for discussion results at other disc space levels. Electronically signed by: Tawanda Zamorano MD 02/17/2020 10:39 AM [facility]
== END ==
LOC: MRI 09:00
PROVIDERS: ATTEND General Practice
DX: M51.16 Intervertebral disc disorders with radiculopathy, lumbar region (principal); M47.26 Other spondylosis with radiculopathy, lumbar region; M47.895 Other spondylosis, thoracolumbar region; M46.96 Unspecified inflammatory spondylopathy, lumbar region; M43.16 Spondylolisthesis, lumbar region; M24.28 Disorder of ligament, vertebrae; M48.061 Spinal stenosis, lumbar region without neurogenic claudication; M41.9 Scoliosis, unspecified

== ENCOUNTER → 2020-04-04 | Outpatient (CLI) | payer MEDICARE, OTHER | LOC: YCFC.O 12:28 | PROVIDERS: ATTEND Nurse Practitioner Family | DX: Z20.828 Contact with and (suspected) exposure to other viral communicable diseases (principal) ==